=== PATIENT | male | born 1985 | race Caucasian/White ===

== ENCOUNTER 2017-04-04 21:03 | Emergency (ER) | payer SELFPAY ==
[~2017-04-04 21:03] MED LIST: Donnatal Elixir 16.2 MG/5 ML UDCUP ONE
[2017-04-04] MEDS ORDERED: Mag-Al Plus 1200 MG/1200 MG/120 MG/30 ML UDCUP ONE (22:17)
[2017-04-04] MEDS ORDERED: Donnatal Elixir 16.2 MG/5 ML UDCUP ONE (22:17)
[2017-04-04] MEDS ORDERED: Lidocaine Viscous Sol 2% 15 ml UD Cup ONE (22:17)
== END 2017-04-04 23:55 | disposition home or self-care (01) ==
LOC: MADERS 21:03
DX: K21.0 Gastro-esophageal reflux disease with esophagitis (principal)
CPT/HCPCS: 99283

== ENCOUNTER 2020-09-06 20:26 | Emergency (ER) | payer SELFPAY | END 2020-09-06 21:00 | disposition home or self-care (01) | LOC: MADERS 20:26 | DX: K04.7 Periapical abscess without sinus (principal) | CPT/HCPCS: 99282 ==

== ENCOUNTER 2021-04-18 00:34 | Emergency (ER) | payer SELFPAY | END 2021-04-18 02:46 | disposition home or self-care (01) | LOC: MADERS 00:34 | DX: R55 Syncope and collapse (principal) ==